=== PATIENT | female | born 1975 | race Two or more races ===

== ENCOUNTER 2024-08-18 00:24 | Emergency (ER) | payer MEDICAID, SELFPAY ==
[2024-08-18] VITALS (9 sets, daily range): BP systolic 117–137; BP diastolic 60–84; PULSE 51–70; RESP 15–20; TEMP 36.5–36.8; O2SAT 98–100; BMI 39.1
--- NOTE | 2024-08-18 | XR_ITS ---
MRI abdomen, without contrast. MRCP Date and time of exam: August 18, 2024 0752 hours INDICATIONS: Worsening abdominal pain beginning 3 days ago with enlarged common bile duct on abdomen sonogram this morning Technique: Multiple axial and coronal images of the abdomen have been obtained with the Siemens 1.5T MRI scanner. Images obtained included T1 weighted transverse images, T2-weighted transverse images, T2-weighted transverse images fat-suppressed, T2 weighted haste fat suppressed transverse images, T1 weighted images, in and out of phase images, T2-weighted coronal images, breath hold, T2 weighted haze coronal images as well as T2 weighted coronal thick slab images, MRCP. Findings: 16mm left lobe liver cyst Edema surrounds the gallbladder wall Filling defects in the distal common bile duct consistent with small stones or sludge, mildly enlarged common bile duct Negative for pancreatitis No ascites Spleen is not enlarged No hydronephrosis Intact osseous structures IMPRESSION: Acute acalculous cholecystitis Gallbladder sludge versus small stones 1 to 2 mm in the distal common bile duct, recommend ERCP follow-up
--- NOTE | 2024-08-18 00:42 | XR_ITS ---
Examination: Abdomen sonogram, Limited Date and time of exam: August 18, 2024 0133 hrs. Indications: Right upper abdominal pain beginning 6 months ago Technique: Real-time melo scale transabdominal sonographic images of the upper abdomen obtained. Findings: Gallbladder sludge No definite gallstones Gallbladder wall 0.3 cm no edema Common bile duct enlarged 0.7 cm no definite stones Pancreatic head 3.0 cm Fatty liver measuring 15.3 cm with 18 mm left lobe liver cyst Normal hepatopedal portal venous flow Patent IVC Impression: Gallbladder sludge Enlarged common bile duct 0.7 cm no definite stones, if biliary colic is a clinical consideration recommend MRCP follow-up
--- NOTE | 2024-08-18 00:43 | PD.EDRME ---
Rapid Medical Screening Exam RME Arrival date/time: 08/18/24 00:24 49 yo f present to ED for c/o RUQ pain, worsen the past few days I have greeted and performed a focused initial assessment of this patient. A comprehensive ED assessment and evaluation of the patient, analysis of all test results, and completion of the medical decision making process will be conducted by additional ED providers. Chief Complaint: Abdominal Pain Time Seen by Provider: 08/18/24 00:31 Vital signs: Vital Signs Temperature 97.8 F 08/18/24 00:37 Pulse Rate 65 08/18/24 00:37 Respiratory Rate 20 08/18/24 00:37 Blood Pressure 137/84 H 08/18/24 00:37 Pulse Oximetry (%) 98 08/18/24 00:37 Oxygen Delivery Method Room Air 08/18/24 00:37
[2024-08-18] MEDS: ONDANSETRON ODT 4 MG TABRAP PO (00:56)
[2024-08-18] MEDS: KETOROLAC INJ 60 MG/2 ML VIAL 30 MG IM (00:57)
[2024-08-18 01:12] LABS: Basophils # (Auto) 0.1 Thou/mm3 (0.0-0.2); Basophils % (Auto) 1 % (0-2.5); Eosinophils # (Auto) 0.2 Thou/mm3 (0.0-0.5); Eosinophils % (Auto) 2 % (0-10); Hematocrit 34.5 % (36.0-46.0); Hemoglobin 10.8 g/dL (12.0-16.0); Immature Granulocytes % (Auto) 0 % (0-0); Immature Granulocytes Auto 0.01 Thou/mm3 (0.00-0.00); Lymphocytes # (Auto) 2.1 Thou/mm3 (1.0-4.8); Lymphocytes % (Auto) 24 % (10-50); Mean Corpuscular HGB Conc 31.3 g/dl (31.0-37.0); Mean Corpuscular Hemoglobin 25.3 pg (25.0-35.0); Mean Corpuscular Volume 81 fL (80-100); Monocytes # (Auto) 0.8 Thou/mm3 (0.0-0.8); Monocytes % (Auto) 9 % (0-12); Neutrophils # (Auto) 5.6 Thou/mm3 (1.8-7.7); Neutrophils % (Auto) 64 % (37-80); Nucleated Red Blood Cell % 0 /100 WBC (0); Platelet Count 388 Thou/mm3 (140-440); RDW Standard Deviation 43.8 fL (36.4-46.3); Red Blood Count 4.27 Miln/mm3 (4.00-5.20); White Blood Count 8.7 Thou/mm3 (3.6-11.0)
[2024-08-18 01:39] LABS: Alanine Aminotransferase 14 U/L (10-49); Albumin, Serum 4.2 gm/dL (3.5-5.0); Albumin/Globulin Ratio 1.3 (1.2-2.2); Alkaline Phosphatase 81 U/L (46-116); Anion Gap 10 (7-16); Aspartate Amino Transferase 22 U/L (0-34); BUN/Creatinine Ratio 14 Ratio (12-20); Bilirubin,Total 0.5 mg/dL (0.3-1.2); Blood Urea Nitrogen 13 mg/dL (9-23); Carbon Dioxide 24.2 mMol/L (20.0-31.0); Chloride 108 mMol/L (98-107); Creatinine (Component) 0.9 mg/dL (0.6-1.3); Estimated Creatinine Clearance 87.6 mL/min (>60); Globulin 3.3 gm/dL (2.3-3.5); Glucose 118 mg/dL (74-106); Lipase 43 U/L (12-53); Osmolality,Calculated 284 (275-295); Potassium 3.8 mMol/L (3.4-5.1); Sodium 142 mMol/L (136-145); Total Protein 7.5 gm/dL (5.7-8.2); eGFR > 60 See Note
[2024-08-18] MEDS: HYDROcodone/APAP 5/325 TABLET 1 TAB PO (03:51)
--- NOTE | 2024-08-18 04:06 | PRELIM_ITS ---
Right upper quadrant abdominal ultrasound. August 18, 2024 0133 hours Clinical history: RUQ pain, hx of gallstone Technique: Grayscale and color flow images of the right upper quadrant are provided. Hepatic and portal veins were also imaged with color flow images. Comparison: None. Findings: The liver demonstrates increased echogenicity. No intrahepatic biliary ductal dilatation. The gallbladder is filled with sludge. Cystic lesion in the liver measures 1.9 cm. No gallbladder calculus, wall thickening or pericholecystic fluid is demonstrated. The common bile duct is dilated in caliber at 0.7 cm. The pancreas is unremarkable to the extent visualized. The imaged portions of the right kidney are within normal limits. The portal vein is patent with hepatopetal flow and normal wave Doppler spectral analysis. The hepatic veins are patent. Reed sign is not available at the time of this report. Impression: Dilated CBD suspicious for choledocholithiasis. Consider correlation with MRCP. Liver steatosis. Cystic lesion in the liver, consider correlation with MRI if clinically indicated. Gallbladder sludge without ultrasound evidence of acute cholecystitis. Report Electronically Signed By: Lj Shah 08/18/2024 4:05:55 AM [EST]
[2024-08-18 05:19] LABS: Collection Type, Urine Voided
[2024-08-18 05:51] LABS: Bilirubin,Urine Negative (Negative); Blood,Urine Negative (Negative); Clarity,Urine Clear (Clear/Hazy); Color,Urine Yellow (Lt Yel-Yel); Glucose, Urine Negative (Negative); Ketones,Urine Negative (Negative); Leukocyte Esterase,Urine Negative (Negative); Nitrite,Urine Negative (Negative); PH,Urine 5.5 (5.0-7.0); Protein,Urine Trace (Neg - Trace); RBC,Urine 5 /hpf (0-3); Specific Gravity,Urine 1.036 (1.001-1.035); Squamous Epithelial Cell,Urine 1 /hpf (0-5); Urobilinogen,Urine Negative mg/dL (0.0-1.0); WBC,Urine 1 /hpf (0-5)
--- NOTE | 2024-08-18 07:15 | PC.NURSE ---
PT RESTING QUIETLY IN BED. DENIES ANY DISCOMFORT AT THIS TIME. WILL CONT TO MONITOR.
--- NOTE | 2024-08-18 07:29 | PC.NURSE ---
INFORMED CHARGE NURSE MALIA AND DR. MCFARLAND THAT PT IS IN BIGEMINY; PT IS ASYMPTOMATIC. ASKED MD IF PT CAN STILL GO TO MRI, SHE SAID PT CAN GO SINCE SHE IS ASYMPTOMATIC. SUNNY FROM MRI INFORMED.
--- NOTE | 2024-08-18 08:08 | EDNOTE_ITS ---
ED Abdominal Pain RME/HPI General Chief Complaint: Abdominal Pain Stated complaint: RUQ PAIN / HX OF GALLSTONES Time seen by provider: 08/18/24 00:31 Arrival date/time: 08/18/24 00:24 RME / HPI RME / HPI narrative: 08/18/24 00:24 49 yo f present to ED for c/o RUQ pain, worsen the past few days I have greeted and performed a focused initial assessment of this patient. A comprehensive ED assessment and evaluation of the patient, analysis of all test results, and completion of the medical decision making process will be conducted by additional ED providers. DR. NO MAIN ED EVALUATION: 49 year old female with past medical history significant for gallstones presents to the Emergency Department with complaint of right upper quadrant pain. Associated symptoms include nausea and vomiting. Patient states she feels better that the medications helped and she has no more nausea or pain at all. Related Data Allergies Allergy/AdvReac Type Severity Reaction Status Date / Time No Known Allergies Allergy Unverified 05/03/22 07:13 Review of Systems Review of Systems Systems Reviewed: All systems reviewed, normal except as documented Past Medical History Past Medical History GASTROINTESTINAL: Positive Gastrointestinal Disorders and Obesity OTHER HISTORY: Positive Chicken Pox Social History SMOKING STATUS: Never smoker SUBSTANCE USE: does not use ALCOHOL: Never ED Exam Narrative Physical exam: GENERAL APPEARANCE: alert and oriented x 4, well-developed, well-nourished, no acute distress VITALS: All vitals were reviewed and the pulse ox is 98% on room air, which is normal according to my interpretation. HEENT: Normocephalic, atraumatic; pupils equal, round, reactive to light; EOMI; mucous membranes pink, moist; oropharynx clear NECK: Supple LUNGS: CTABL; no wheezes, no rales, no rhonchi HEART: Regular rate, regular rhythm; normal S1, S2; no murmurs ABDOMEN: non distended; normal BS; soft, no tenderness, no guarding, no rebound; no masses, no organomegaly, no hernia BACK: no CVA tenderness EXTREMITIES: atraumatic; no edema NEUROLOGIC: awake; alert and oriented x4; cranial nerves II-XII grossly intact; no focal sensory or motor deficits PSYCHIATRIC: appropriate mood and affect SKIN: warm, dry, normal color; no rashes Course Quality Measures none Orders Category Date Time Status MRI Screening NOW Care 08/18/24 05:36 Active MR MRCP Stat Exams 08/18/24 Completed US abdomen limited Stat Exams 08/18/24 00:42 Completed CBC Stat Lab 08/18/24 00:57 Completed CBC Stat Lab 08/18/24 10:42 Completed CMP [Comprehensive Metabolic Panel] Stat Lab 08/18/24 00:57 Completed CMP [Comprehensive Metabolic Panel] Stat Lab 08/18/24 10:42 Completed Lipase Stat Lab 08/18/24 00:57 Completed Lipase Stat Lab 08/18/24 10:42 Completed UA [Urinalysis] Stat Lab 08/18/24 04:40 Completed HYDROcodone*/APAP 5/325 [[place] 5/325] Med 08/18/24 03:38 Discontinued 1 tab PO X1 ONE Ketorolac Inj [Toradol Inj] Med 08/18/24 00:42 Discontinued 30 mg IM X1 ONE Ondansetron Odt [Zofran Odt] Med 08/18/24 00:42 Discontinued 4 mg PO X1 ONE Vital Signs Vital signs: Vital Signs Temperature 97.8 F 08/18/24 00:37 Pulse Rate 65 08/18/24 00:37 Respiratory Rate 20 08/18/24 00:37 Blood Pressure 137/84 H 08/18/24 00:37 Pulse Oximetry (%) 98 08/18/24 00:37 Oxygen Delivery Method Room Air 08/18/24 00:37 Abdominal Pain MDM MDM Narrative MDM Narrative:: I, Estela Marshall, yefri scribing for and in the presence of Dr. No. Patient data External records reviewed:: [facility] previous records (Reviewed last ED visit dated 02/28/22, discharged with the following: Muscle spasm of left shoulder area) Clinical information provided by:: patient Social determinants that could affect healthcare access:: none Patient has the following chronic illnesses:: Gallstones How is presenting disease/condition affected by chronic disease/condition?: exacerbated by Evaluation data The following diagnostics were reviewed and interpreted by me:: lab results and radiology exam(s) Lab and/or radiology exams considered but not ordered:: none Interpretation Summary: Procedure(s): US abdomen limited Accession Number(s): [id number] cc: Elizabeth Ruiz; Bill Cervantes MD; Eric Martinez PA-C~ Examination: Abdomen sonogram, Limited Date and time of exam: August 18, 2024 0133 hrs. Indications: Right upper abdominal pain beginning 6 months ago Technique: Real-time melo scale transabdominal sonographic images of the upper abdomen obtained. Findings: Gallbladder sludge No definite gallstones Gallbladder wall 0.3 cm no edema Common bile duct enlarged 0.7 cm no definite stones Pancreatic head 3.0 cm Fatty liver measuring 15.3 cm with 18 mm left lobe liver cyst Normal hepatopedal portal venous flow Patent IVC Impression: Gallbladder sludge Enlarged common bile duct 0.7 cm no definite stones, if biliary colic is a clinical consideration recommend MRCP follow-up Dictated By: Bill Cervantes MD Procedure(s): MR MRCP Accession Number(s): [id number] cc: Elizabeth Ruiz-Phil; Bill Cervantes MD; Elizabeth Ng MD~ MRI abdomen, without contrast. MRCP Date and time of exam: August 18, 2024 0752 hours INDICATIONS: Worsening abdominal pain beginning 3 days ago with enlarged common bile duct on abdomen sonogram this morning Technique: Multiple axial and coronal images of the abdomen have been obtained with the Siemens 1.5T MRI scanner. Images obtained included T1 weighted transverse images, T2-weighted transverse images, T2-weighted transverse images fat-suppressed, T2 weighted haste fat suppressed transverse images, T1 weighted images, in and out of phase images, T2-weighted coronal images, breath hold, T2 weighted haze coronal images as well as T2 weighted coronal thick slab images, MRCP. Findings: 16mm left lobe liver cyst Edema surrounds the gallbladder wall Filling defects in the distal common bile duct consistent with small stones or sludge, mildly enlarged common bile duct Negative for pancreatitis No ascites Spleen is not enlarged No hydronephrosis Intact osseous structures IMPRESSION: Acute acalculous cholecystitis Gallbladder sludge versus small stones 1 to 2 mm in the distal common bile duct, recommend ERCP follow-up Dictated By: Bill Cervantes MD Medications / Prescriptions Medications or Prescriptions considered but not ordered:: none Medication administrations:: Medication Administration History Discontinued Medications Hydrocodone Bitart/Acetaminophen (Hydrocodone/[place] 5/325 Tablet) 1 tab PO X1 ONE Stop: 08/18/24 03:39 Last Admin: 08/18/24 03:51 Dose: 1 tab Documented By: WADE Ketorolac Tromethamine (Ketorolac Inj 60 Mg/2 Ml Vial) 30 mg IM X1 ONE Stop: 08/18/24 00:43 Last Admin: 08/18/24 00:57 Dose: 30 mg Documented By: JAVIER Ondansetron HCl (Ondansetron Odt 4 Mg Tabrap) 4 mg PO X1 ONE; Protocol Stop: 08/18/24 00:43 Last Admin: 08/18/24 00:56 Dose: 4 mg Documented By: JAVIER see above Consultations Consultation(s) initiated? (list below): No Diagnosis Differential diagnosis abdominal pain: abdominal pain, constipation and other (gallstones) Most likely diagnosis given after review of the tests above:: Biliary colic symptom Abdominal pain Admission Indicated Admission indicated?: not indicated Admission Request Was there a request for admission?: No Disposition Plan Disposition Plan: Discharge Discharge Attestation Discharge Attestation: The patient and all family members were given an opportunity to ask questions and understood the discharge instructions. Discharge instructions specifically effects, indications for sooner follow up or return to the emergency department, and the expected course of current diagnosis. Patient condition: Stable Discharge Plan Plan Patient Disposition: HOME (Self Care) Prescriptions/Referrals Referrals: Elizabeth Ruiz FNP-C [Primary Care Provider] - In 1 week Problem List Clinical Impression: Biliary colic symptom, Abdominal pain Patient/Caregiver Discharge Instructions Education Materials: ED Abdominal Pain Unkn Cause Fem Print Language: Turkmen Stand Alone Forms: Ester Award Info., Patient Portal Info Letter
[2024-08-18 11:08] LABS: Basophils # (Auto) 0.1 Thou/mm3 (0.0-0.2); Basophils % (Auto) 1 % (0-2.5); Eosinophils # (Auto) 0.1 Thou/mm3 (0.0-0.5); Eosinophils % (Auto) 2 % (0-10); Hematocrit 34.4 % (36.0-46.0); Hemoglobin 11.1 g/dL (12.0-16.0); Immature Granulocytes % (Auto) 0 % (0-0); Immature Granulocytes Auto 0.02 Thou/mm3 (0.00-0.00); Lymphocytes # (Auto) 1.7 Thou/mm3 (1.0-4.8); Lymphocytes % (Auto) 26 % (10-50); Mean Corpuscular HGB Conc 32.3 g/dl (31.0-37.0); Mean Corpuscular Hemoglobin 25.7 pg (25.0-35.0); Mean Corpuscular Volume 80 fL (80-100); Monocytes # (Auto) 0.5 Thou/mm3 (0.0-0.8); Monocytes % (Auto) 7 % (0-12); Neutrophils # (Auto) 4.1 Thou/mm3 (1.8-7.7); Neutrophils % (Auto) 63 % (37-80); Nucleated Red Blood Cell % 0 /100 WBC (0); Platelet Count 225 Thou/mm3 (140-440); RDW Standard Deviation 43.2 fL (36.4-46.3); Red Blood Count 4.32 Miln/mm3 (4.00-5.20); White Blood Count 6.4 Thou/mm3 (3.6-11.0)
[2024-08-18 11:18] LABS: Alanine Aminotransferase 12 U/L (10-49); Albumin/Globulin Ratio 1.3 (1.2-2.2); Alkaline Phosphatase 77 U/L (46-116); Anion Gap 8 (7-16); Aspartate Amino Transferase 17 U/L (0-34); BUN/Creatinine Ratio 14 Ratio (12-20); Bilirubin,Total 0.7 mg/dL (0.3-1.2); Blood Urea Nitrogen 11 mg/dL (9-23); Calcium 8.8 mg/dL (8.3-10.6); Calcium (Corrected) 8.8 mg/dL (8.5-10.1); Chloride 108 mMol/L (98-107); Creatinine (Component) 0.8 mg/dL (0.6-1.3); Estimated Creatinine Clearance 98.5 mL/min (>60); Globulin 3.1 gm/dL (2.3-3.5); Glucose 98 mg/dL (74-106); Lipase 31 U/L (12-53); Osmolality,Calculated 282 (275-295); Potassium 3.9 mMol/L (3.4-5.1); Sodium 142 mMol/L (136-145); Total Protein 7.1 gm/dL (5.7-8.2); eGFR > 60 See Note
--- NOTE | 2024-08-18 13:38 | PC.NURSE ---
PT DISCHARGED HOME VIA PRIVATE VEHICLE; PT AMB TO ER ENTRANCE. IV DC'D W/O DIFFICULTY; PT TOLERATED WELL. D/C INST GIVEN W/ UNDERSTANDING EXPRESSED AND QUESTIONS ANSWERED.
== END 2024-08-18 13:38 | disposition home or self-care (01) ==
PROVIDERS: Physician Assistant; Emergency Provider Emergency Medicine; PCP Nurse Practitioner Family
DX: K82.8 Other specified diseases of gallbladder (principal)
CPT/HCPCS: 36415; 76705; 80053; 81001; 83690; 85025; 96372; 99284; J1885; Q0162; S8037; 74181; A9270

== ENCOUNTER 2024-12-18 09:35 | Day surgery (SDC) | payer MEDICAID, SELFPAY ==
--- NOTE | 2024-12-17 06:33 | EKG_ITS ---
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
[2024-12-17 09:26] VITALS: BMI 35.3
[2024-12-17 11:04] LABS: Basophils # (Auto) 0.1 Thou/mm3 (0.0-0.2); Basophils % (Auto) 1 % (0-2.5); Eosinophils # (Auto) 0.1 Thou/mm3 (0.0-0.5); Eosinophils % (Auto) 2 % (0-10); Hematocrit 33.2 % (36.0-46.0); Hemoglobin 10.4 g/dL (12.0-16.0); Immature Granulocytes Auto 0.01 Thou/mm3 (0.00-0.00); Lymphocytes # (Auto) 1.7 Thou/mm3 (1.0-4.8); Lymphocytes % (Auto) 32 % (10-50); Mean Corpuscular HGB Conc 31.3 g/dl (31.0-37.0); Mean Corpuscular Hemoglobin 25.1 pg (25.0-35.0); Mean Corpuscular Volume 80 fL (80-100); Monocytes # (Auto) 0.3 Thou/mm3 (0.0-0.8); Monocytes % (Auto) 6 % (0-12); Neutrophils # (Auto) 3.2 Thou/mm3 (1.8-7.7); Neutrophils % (Auto) 59 % (37-80); Nucleated Red Blood Cell # 0.00 Thou/mm3 (0.00-0.00); Nucleated Red Blood Cell % 0 /100 WBC (0); Platelet Count 210 Thou/mm3 (140-440); RDW Standard Deviation 51.5 fL (36.4-46.3); Red Blood Count 4.15 Miln/mm3 (4.00-5.20); White Blood Count 5.4 Thou/mm3 (3.6-11.0)
[2024-12-17 11:09] LABS: HCG,Qualitative Serum Negative
[2024-12-17 11:16] LABS: Alanine Aminotransferase 8 U/L (10-49); Albumin, Serum 4.2 gm/dL (3.5-5.0); Albumin/Globulin Ratio 1.4 (1.2-2.2); Alkaline Phosphatase 61 U/L (46-116); Anion Gap 9 (7-16); Aspartate Amino Transferase 16 U/L (0-34); BUN/Creatinine Ratio 16 Ratio (12-20); Bilirubin,Total 0.9 mg/dL (0.3-1.2); Blood Urea Nitrogen 13 mg/dL (9-23); Calcium 9.3 mg/dL (8.3-10.6); Calcium (Corrected) 9.3 mg/dL (8.5-10.1); Carbon Dioxide 23.1 mMol/L (20.0-31.0); Chloride 109 mMol/L (98-107); Creatinine (Component) 0.8 mg/dL (0.6-1.3); Estimated Creatinine Clearance 93.2 mL/min (>60); Globulin 3.0 gm/dL (2.3-3.5); Glucose 90 mg/dL (74-106); Osmolality,Calculated 281 (275-295); Potassium 4.4 mMol/L (3.4-5.1); Sodium 141 mMol/L (136-145); Total Protein 7.2 gm/dL (5.7-8.2); eGFR > 60 See Note
[2024-12-18] VITALS (9 sets, daily range): BP systolic 109–140; BP diastolic 69–96; PULSE 61–94; RESP 12–19; TEMP 36.2–36.6; O2SAT 98–100; BMI 35.0
[2024-12-18] MEDS: RINGERS LACTATED 1000 ML 1,000 ML 20 ML IV (10:20)
--- NOTE | 2024-12-18 12:11 | SUR.PHASEI ---
1155: Pt received in [facility] via gurney. Report from Earline LANDEROS and Dr. Mccarty. Pt obtunded. Resp even, unlabored. VS stable. Monitor showing occasional PVC's. Anesthesia aware. Recommended monitoring for changes. Surgical sites x4 to abdomen secured with dermabond. No swelling, discoloration to areas. 1210: PVC occurance increasing. Anesthesia at bedside administering glycopylorrate. 1215: PVC's have stopped.
--- NOTE | 2024-12-18 12:12 | ESOP_ITS ---
Date of Procedure 12/18/24 Pre Op Diagnosis Symptomatic cholelithiasis Post Op Diagnosis Cholelithiasis with cholecystitis Procedure Laparoscopic cholecystectomy Findings Moderately distended gallbladder with large gallstone and chronic cholecystitis Procedure Description Patient was brought into the operating room in supine position. After administration of general endotracheal anesthesia abdomen was prepped and draped in standard surgical manner. A Veress needle was inserted through the umbilicus and pneumoperitoneum was obtained up to 15 mmHg. The Veress needle was then removed, a 5 mm infraumbilical incision was made and the 5mm trocar was inserted. Laparoscopic camera was placed. Under direct visualization a laparoscopic camera a 10 mm trocar was placed in subxiphoid and two 5 mm trocars placed in right upper quadrant. The gallbladder was identified and was noted to be moderately distended with large gallstone and chronic cholecystitis. It was retracted cephalad and laterally. Dissection started near the infundibulum of gallbladder where cystic duct and gallbladder junction clearly identified. The cystic duct was circumferentially dissected off the peritoneum and surrounding inflammatory tissue. The critical view of safety was clearly demonstrated. Cystic duct was then divided between 2 endoclips proximally and one distally. The cystic artery was similarly dissected and divided. The gallbladder was then from the liver bed using electrocautery. The gallbladder was then placed inside an Endo Catch and removed from the abdomen utilizing subxiphoid trocar site. The area was copiously and thoroughly washed and irrigated, all the fluid was suctioned and the suction fluid returned clear. Hemostasis achieved using electrocautery. Endoclips noted be in place and intact without any bleeding or any leakage. Hemostasis was adequate and satisfactory. The subxiphoid trocar sites fascial defect was closed with 0 Vicryl using Endo Closure device. Instruments and trocars removed, pneumoperitoneum was evacuated and the incisions closed with 4-0 Monocryl in subcuticular fashion. Instrument needle and sponge counts were all reported to be correct X2. Patient tolerated the procedure well, was extubated, breathing spontaneously and without difficulty and was transferred to postanesthesia care in stable condition. Anesthesia GETA and local Pathology / specimen Other (Gallbladder and contents) Estimated Blood Loss 10 Condition Stable Disposition PACU Surgeon Trupti Salinas MD Surgical Staff Operation Date: 12/18/24 11:45 Case Staff Anesthesiologist: Manoj Mccarty RNjig and fixture maker: Cherri Sneed
--- NOTE | 2024-12-18 12:25 | SUR.PHASEII ---
1223: Pt has been resting with no complaints voiced. Resp even, unlabored. VS stable. No further PVC's recorded on monitor. Surgical sites remain dry, clean, intact with no swelling, discoloration. Report to Soniya LANDEROS.
[2024-12-18] MEDS: fentaNYL CIT INJ 50 mCg/ML AMP 2ML IVP ×2 (12:30→12:41)
--- NOTE | 2024-12-18 12:48 | SUR.PHASEII ---
1223: pt lying in gurney with eyes closed, breathing unlabored, dressing to abdomen clean, dry, and intact, report from Ronel RN 1240: pt tolerating ice chips without difficulty swallowing or n/v 1248: Report to Ronel RN
--- NOTE | 2024-12-18 12:57 | SUR.PHASEII ---
1248: Assumed care. Pt resting with no complaints voiced. States pain level down. Rates level 2/10. Resp even, unlabored. VS stable. Surgical sites remain intact with no swelling, discoloration. Pt tolerating po ice chips with no n/v.
--- NOTE | 2024-12-18 13:34 | SUR.PHASEII ---
1330: Pt fully awake, oriented x3. VS stable. Surgical sites remain dry, intact with no swelling, discoloration. Pt dressed and assisted to transport chair. Ambulation steady. Pt and stated understanding of discharge instructions. Pt discharged from [facility] in stable condition.
== END 2024-12-18 13:30 | disposition home or self-care (01) ==
PROVIDERS: Anesthesiology; PCP Family Medicine; Referring Provider Surgery; Visit Provider Surgery
PROC: 0FT44ZZ Resection of Gallbladder, Percutaneous Endoscopic Approach (ICD-10-PCS; CPT 47562; principal; 2024-12-18 11:30)
DX: K80.10 Calculus of gallbladder with chronic cholecystitis without obstruction (principal); Z01.810 Encounter for preprocedural cardiovascular examination; R00.1 Bradycardia, unspecified
CPT/HCPCS: 47562; 36415; 80053; 84703; 85025; 93005; A4217; A4649; J0131; J0694; J1100; J2405; J2704; J3010; J3490; J7120; J1596